=== PATIENT | male | born 1975 | race Hispanic/Latino ===

== ENCOUNTER 2018-12-08 09:00 | Outpatient (CLI) | payer BC ==
--- NOTE | 2018-12-08 11:55 | Fluoroscopy Report ---
Upper GI HISTORY: K21.9: Gastro-esophageal reflux disease without esophagitis./. Technique: Single and double contrast barium technique utilized to evaluate the esophagus, stomach, and duodenal C-loop. Findings: To begin the exam, swallowing was evaluated in the lateral position under direct fluorosco py. Swallowing was normal. No mucosal irregularity, mass, mass effect, or critical stenosis. There were no abnormal tertiary c ontractions as seen with dysmotility. There was trace gastroesophageal reflux.A gastric lap band wa s positioned over the region of the gastric cardia. Impression: Trace gastroesophageal reflux. Fluoroscopic time: 1.9 minutes Number of fluoroscopic images: 19 Signer Name: Michelet Marroquin MD Signed: 12/08/2018 11:51 AM Workstation Name: [id number]
== END 2018-12-08 09:01 | disposition home or self-care (01) ==
LOC: FLUORO 09:00
PROVIDERS: ATTEND Surgery
DX: K21.9 Gastro-esophageal reflux disease without esophagitis (principal); K95.09 Other complications of gastric band procedure
CPT/HCPCS: 74247